=== PATIENT | female | born 1945 | race Caucasian/White ===

== ENCOUNTER 2021-03-17 09:13 | Emergency (ER) | payer OTHER ==
[~2021-03-17] VITALS: Ht 165.1 cm; Wt 65.8 kg
[2021-03-17] MEDS ORDERED: PROTONIX40 MG PO (14:07)
[2021-03-17] MEDS ORDERED: DUI500 PO (14:07)
[2021-03-17] MEDS ORDERED: DICY20TA PO (14:07)
== END 2021-03-17 14:52 | disposition home or self-care (01) ==
LOC: ER 09:13
DX: K80.80 Other cholelithiasis without obstruction (principal); N20.0 Calculus of kidney; R10.11 Right upper quadrant pain; R10.31 Right lower quadrant pain

== ENCOUNTER 2023-10-01 16:02 | Inpatient (IN) | payer OTHER ==
[~2023-10-01] VITALS: Ht 152.4 cm; Wt 45.4 kg
[~2023-10-01 16:02] MED LIST: DICY20TA PO; DUI500 PO; PROTONIX40 MG PO
[2023-10-01] MEDS ORDERED: MEMANTINE HCL10 MG PO (16:15)
[2023-10-01] MEDS ORDERED: PERMETHRIN60 GM TP (16:15)
[2023-10-01] MEDS ORDERED: DONEPEZIL HCL10 MG PO (16:15)
[2023-10-01] MEDS ORDERED: LORAZEPAM1 MG PO (16:15)
[2023-10-01] MEDS ORDERED: QUETIAPINE FUM300 MG PO (16:15)
[2023-10-01] MEDS ORDERED: RESTORIL30 MG PO (16:15)
[2023-10-01] MEDS ORDERED: TRAZODONE HCL150 MG PO (16:15)
--- NOTE | 2023-10-01 16:16 | NUR ---
SE RECIBE PTE FEMENINA DE 78 ANOS HYPOACTIVA DESORIENTADA X3 QUIEN AL MOMENTO FAMILIAR INDICA PTE PRECENTA ABCESO EN GLUTEO IZQ. SE APRECIA ERITEMA EN AREA AFECTADA. PTE SE UBICA EN OBS.
[2023-10-01] MEDS ORDERED: KETOROLAC TROMETHAMINE 30 MG VIAL ONE (18:25)
[2023-10-01] MEDS ORDERED: CLINDAMYCIN PHOSPHATE 150 MG/ML (300mg) ONE (18:26)
[2023-10-01] MEDS ORDERED: KETOROLAC TROMETHAMINE 30 MG VIAL IM ONE (18:30)
[2023-10-01] MEDS ORDERED: CLINDAMYCIN PHOSPHATE 150 MG/ML (600mg) IM ONE (18:30)
--- NOTE | 2023-10-01 18:40 | NUR ---
SE EDUCA FAMILIAR SOBRE EL TX MEDICO Y ESTA REFIERE ENTENDER. SE AMY MUESTRAS DE LABORATORIOS Y SE ENVIAN. SE ADMINITRAN MEDICAMENTOS NICKY ORDEN MEDICA
[2023-10-01 18:43] LABS: HEMATOCRIT 36.3 % (36.0-45.00); HEMOGLOBIN 12.4 g/dL (12.0-15.00); MEAN CELL VOLUME 96.8 fL (80.00-100.00); MEAN CORPUSCULAR HEMOGLOBIN 33.2 pg (27.00-32.0); MEAN CORPUSCULAR HGB CONC 34.3 g/dl (32.0-36.0); PLATELET COUNT 188 K/uL (150-450); RED BLOOD COUNT 3.74 M/uL (4.00-6.00); RED CELL DISTRIBUTION WIDTH 14.2 % (11.5-14.5)
[2023-10-01 19:31] LABS: CALCIUM 9.8 mg/dL (8.5-10.1); CREATININE SERUM 1.36 mg/dL (0.55-1.02); GFR 37.7; POTASSIUM 3.83 mEq/L (3.5-5.1)
[2023-10-01] MEDS ORDERED: CLINDAMYCIN PHOSPHATE 150 MG/ML (300mg) IV SCH (21:51)
[2023-10-01] MEDS ORDERED: FAMOTIDINE/PF 20 MG in 0.9 % SODIUM CHLORIDE 100 ML IV SCH (21:53)
[2023-10-01] MEDS ORDERED: QUETIAPINE FUMARATE 100 MG TABLET PO SCH (21:56)
[2023-10-01] MEDS ORDERED: ONDANSETRON HCL 4 MG in 0.9 % SODIUM CHLORIDE 50 ML IV PRN (22:00)
[2023-10-01] MEDS ORDERED: TEMAZEPAM 15 MG CAPSULE PO PRN (22:00)
[2023-10-01] MEDS ORDERED: ACETAMINOPHEN 500 MG GEL..CAP PO PRN (22:00)
[2023-10-01] MEDS ORDERED: DEXTROSE 5 % AND 0.9 % NACL 1,000 ML IV SCH (22:00)
[2023-10-02] MEDS ORDERED: FAMOTIDINE/PF 20 MG/2 ML VIAL ONE (00:28)
[2023-10-02] MEDS ORDERED: CLINDAMYCIN PHOSPHATE 150 MG/ML (300mg) ONE (00:28)
[2023-10-02 03:40] LABS: ALBUMIN 2.4 gm/dL (3.4-5.0); BILIRUBIN TOTAL 0.57 mg/dL (0.3-1.2); BILIRUBIN,CONJUGATED 0.22 mg/dL (0.0-0.2); BILIRUBIN,UNCONJUGATED 0.35 mg/dL (0.0-0.6); CALCIUM 9.4 mg/dL (8.5-10.1); CREATININE SERUM 1.51 mg/dL (0.55-1.02); GFR 33.41; PHOSPHOROUS 2.9 mg/dL (2.5-4.9); POTASSIUM 3.73 mEq/L (3.5-5.1); TOTAL PROTEIN 7.4 gm/dL (6.4-8.2)
[2023-10-02] MEDS ORDERED: FAMOTIDINE/PF 20 MG in 0.9 % SODIUM CHLORIDE 100 ML IV SCH (09:00)
[2023-10-02] MEDS ORDERED: SODIUM CHLORIDE 0.45 % 1,000 ML IV SCH (13:00)
[2023-10-02] MEDS ORDERED: VANCOMYCIN HCL 5 MG/ML REDILUIDO IV SCH (17:00)
[2023-10-02] MEDS ORDERED: CEFTRIAXONE SODIUM 2,000 MG VIAL IV SCH (21:00)
[2023-10-02] MEDS ORDERED: LORazepam 1 MG TABLET PO SCH (21:00)
[2023-10-03 06:29] LABS: HEMOGLOBIN 10.2 g/dL (12.0-15.00); MEAN CELL VOLUME 96.4 fL (80.00-100.00); MEAN CORPUSCULAR HEMOGLOBIN 32.9 pg (27.00-32.0); MEAN CORPUSCULAR HGB CONC 34.1 g/dl (32.0-36.0); PLATELET COUNT 185 K/uL (150-450); RED BLOOD COUNT 3.11 M/uL (4.00-6.00); RED CELL DISTRIBUTION WIDTH 14.4 % (11.5-14.5)
[2023-10-03 07:18] LABS: ALBUMIN 2.3 gm/dL (3.4-5.0); BILIRUBIN TOTAL 0.49 mg/dL (0.3-1.2); CALCIUM 8.7 mg/dL (8.5-10.1); CREATININE SERUM 0.88 mg/dL (0.55-1.02); GFR 62.31; GLOBULINA 3.8 G/DL (2.4-3.5); MAGNESIUM 2.4 mg/dL (1.8-2.4); PHOSPHOROUS 2.1 mg/dL (2.5-4.9); POTASSIUM 3.71 mEq/L (3.5-5.1); TOTAL PROTEIN 6.1 gm/dL (6.4-8.2)
[2023-10-03 07:55] LABS: C-REACTIVE PROTEIN 11.1 MG/DL (0.00-0.29)
[2023-10-03 08:44] LABS: PH,URINE 5.5 (5.0-8.0); URINE APPEARANCE Cloudy; URINE BILIRRUBIN Negative (NEGATIVE); URINE BLOOD Large; URINE COLOR Yellow; URINE GLUCOSE Negative (NEGATIVE); URINE KETONE Negative (NEGATIVE); URINE LEUKOCYTE Large; URINE NITRATE Negative; URINE PROTEIN 30 (NEGATIVE)
[2023-10-03 08:46] LABS: URINE CAST 11.45 uL (0.0-1.40); URINE EPITHELIAL CELLS 14.6 uL (0.0-38.8); URINE RBC 451.5 uL (0.0-20.8); URINE WBC 784.6 uL (0.0-23.2)
[2023-10-03] MEDS ORDERED: FAMOTIDINE/PF 20 MG in 0.9 % SODIUM CHLORIDE 100 ML IV SCH (09:00)
[2023-10-03 09:05] LABS: URINE MUCUS SCANT
[2023-10-03 09:06] LABS: URINE CRYSTALS FEW /HPF
[2023-10-03] MEDS ORDERED: POTASSIUM PHOS,M-BASIC-D-BASIC 18 MM in 0.9 % SODIUM CHLORIDE 250 ML IV NR (10:00)
[2023-10-03] MEDS ORDERED: DEXTROSE 5 % IN WATER 1,000 ML IV SCH (18:30)
[2023-10-04] MEDS ORDERED: MEROPENEM 500 MG/VIAL VIAL IV SCH (12:00)
[2023-10-04 14:22] LABS: HEMATOCRIT 30.9 % (36.0-45.00); HEMOGLOBIN 10.6 g/dL (12.0-15.00); MEAN CELL VOLUME 94.5 fL (80.00-100.00); MEAN CORPUSCULAR HEMOGLOBIN 32.4 pg (27.00-32.0); MEAN CORPUSCULAR HGB CONC 34.3 g/dl (32.0-36.0); PLATELET COUNT 222 K/uL (150-450); RED BLOOD COUNT 3.27 M/uL (4.00-6.00)
[2023-10-04 14:48] LABS: CALCIUM 8.3 mg/dL (8.5-10.1); CREATININE SERUM 0.62 mg/dL (0.55-1.02); GFR 93.34; POTASSIUM 3.8 mEq/L (3.5-5.1)
[2023-10-04] MEDS ORDERED: FAMOtidine 40 MG TABLET PO SCH (21:00)
[2023-10-05] MEDS ORDERED: SODIUM CHLORIDE 0.45 % 1,000 ML IV SCH (06:30)
[2023-10-05 06:42] LABS: ALBUMIN 2.2 gm/dL (3.4-5.0); CALCIUM 8.6 mg/dL (8.5-10.1); CREATININE SERUM 0.82 mg/dL (0.55-1.02); GFR 67.6; PHOSPHOROUS 2.4 mg/dL (2.5-4.9); POTASSIUM 3.81 mEq/L (3.5-5.1)
[2023-10-05] MEDS ORDERED: ENOXAPARIN SODIUM 30 MG/0.3 ML SYRINGE SUBCUTANEO SCH (09:00)
[2023-10-05 16:32] LABS: URINE APPEARANCE Clear; URINE BILIRRUBIN Negative (NEGATIVE); URINE BLOOD Negative; URINE COLOR Yellow; URINE GLUCOSE Negative (NEGATIVE); URINE KETONE Trace (NEGATIVE); URINE LEUKOCYTE Trace; URINE NITRATE Negative; URINE PROTEIN Negative (NEGATIVE)
[2023-10-05 16:35] LABS: URINE EPITHELIAL CELLS 6.1 uL (0.0-38.8); URINE RBC 9.4 uL (0.0-20.8); URINE WBC 47.2 uL (0.0-23.2)
[2023-10-05 16:37] LABS: URINE CAST 1.22 uL (0.0-1.40)
[2023-10-06] MEDS ORDERED: SEROQUEL300 MG PO (16:30)
[2023-10-06] MEDS ORDERED: LORAZEPAM1 MG PO (16:30)
== END 2023-10-06 17:42 | disposition home or self-care (01) | DRG 603 ==
LOC: ER 16:02 → MEDI 22:15 → SEC-K 22:15 → MEDI 10-02 01:17 → MEDJ 10-04 11:51
PROVIDERS: General Practice; Internal Medicine Infectious Disease; Internal Medicine Nephrology; ADMIT Internal Medicine; ATTEND Internal Medicine
DX: L02.31 Cutaneous abscess of buttock (principal); N39.0 Urinary tract infection, site not specified; N17.9 Acute kidney failure, unspecified; E87.0 Hyperosmolality and hypernatremia; L89.322 Pressure ulcer of left buttock, stage 2; L03.317 Cellulitis of buttock; E86.0 Dehydration; G30.8 Other Alzheimer's disease; F02.80 Dementia in other diseases classified elsewhere, unspecified severity, without behavioral disturbance, psychotic disturbance, mood disturbance, and anxiety; Z74.01 Bed confinement status; B96.20 Unspecified Escherichia coli [E. coli] as the cause of diseases classified elsewhere

== ENCOUNTER 2024-01-27 11:34 | Inpatient (IN) | payer OTHER ==
[~2024-01-27] VITALS: Ht 160 cm; Wt 94.8 kg
[~2024-01-27 11:34] MED LIST changes: +DONEPEZIL HCL10 MG PO; +LORAZEPAM1 MG PO; +MEMANTINE HCL10 MG PO; +PERMETHRIN60 GM TP; +QUETIAPINE FUM300 MG PO; +RESTORIL30 MG PO; +SEROQUEL300 MG PO; +TRAZODONE HCL150 MG PO
[2024-01-27] MEDS ORDERED: 0.9 % SODIUM CHLORIDE 1,000 ML IV ONE (11:45)
--- NOTE | 2024-01-27 11:50 | NUR ---
SE RECIBE PTE ALERTA DESORIENTADA EN AMBULANCIA EN COMPANIA DE PARAMEDICOS Y FAMILIAR.PARAMEDICOS REFIEREN PTE LLEVA VARIOS BOX SIN COMER,CON FALTA DE APPETITO.PTE CON DX DE ALZHEIMER.
[2024-01-27 12:30] LABS: HEMATOCRIT 34.1 % (36.0-45.00); HEMOGLOBIN 11.4 g/dL (12.0-15.00); MEAN CELL VOLUME 98.1 fL (80.00-100.00); MEAN CORPUSCULAR HEMOGLOBIN 32.9 pg (27.00-32.0); MEAN CORPUSCULAR HGB CONC 33.5 g/dl (32.0-36.0); PLATELET COUNT 280 K/uL (150-450); RED BLOOD COUNT 3.48 M/uL (4.00-6.00); RED CELL DISTRIBUTION WIDTH 15.4 % (11.5-14.5)
--- NOTE | 2024-01-27 12:46 | NUR ---
SE ORIENTA A FAMILIAR SOBRE ORDENES MEDICAS. SE COLECTAN MUESTRAS DE LABORATORIO Y SE CANALIZA A PACIENTE BAJO MEDIDAS ASEPTICAS. SE COLOCA IVF'S NICKY ORDEN MEDICA. SE REALIZA EKG Y SE NOTIFICA X-RAY.
[2024-01-27 12:53] LABS: INR 1.3; PARTIAL THROMBOPLASTIN TIME 25.6 SECONDS (22.0-34.0); PROTHROMBIN TIME 13.9 SECONDS (9.0-11.5)
[2024-01-27 12:57] LABS: ALBUMIN 2.9 gm/dL (3.4-5.0); BILIRUBIN TOTAL 0.57 mg/dL (0.3-1.2); CALCIUM 9.1 mg/dL (8.5-10.1); CREATININE SERUM 0.94 mg/dL (0.55-1.02); GFR 57.74; GLOBULINA 3.9 G/DL (2.4-3.5); POTASSIUM 3.53 mEq/L (3.5-5.1); TOTAL PROTEIN 6.8 gm/dL (6.4-8.2)
[2024-01-27] MEDS ORDERED: SODIUM CHLORIDE 0.45 % 1,000 ML IV ONE (14:00)
--- NOTE | 2024-01-27 14:55 | NUR ---
FAMILIAR DE PACIENTE NOTIFICA QUE PACIENTE ESTA TOMANDO AGUA POR TURNER CUENTA. DR MARTINEZ ORDENA NO COLOCAR NGT AL MOMENTO A MENOS QUE PACIENTE PRESENTE DIFICULTAD EN TRAGADO.
--- NOTE | 2024-01-27 15:43 | NUR ---
PTE DEL TURNO ANTERIOR ALERTA Y DESORIENTADA EN CAMA CON BARANDAS ELEVADAS. SE MANTIENE BAJO OBSERVACION POR CAMBIOS SIGNIFICtiVOS
[2024-01-27] MEDS ORDERED: SODIUM CHLORIDE 0.45 % 1,000 ML IV SCH (18:30)
[2024-01-27] MEDS ORDERED: LORazepam 1 MG TABLET PO SCH (21:00)
[2024-01-27] MEDS ORDERED: MEMANTINE HCL 10 MG TABLET PO SCH (21:00)
[2024-01-27] MEDS ORDERED: QUETIAPINE FUMARATE 100 MG TABLET PO SCH (21:00)
[2024-01-27] MEDS ORDERED: TRAZODONE HCL 50 MG TABLET PO SCH (21:00)
[2024-01-28] MEDS ORDERED: PERMETHRIN 60 GM TUBE TOP ONE ×2 (01:00→16:00)
[2024-01-28 02:07] LABS: PH,URINE 8.5 (5.0-8.0); URINE APPEARANCE Clear; URINE BILIRRUBIN Negative (NEGATIVE); URINE BLOOD Negative; URINE COLOR Yellow; URINE GLUCOSE Negative (NEGATIVE); URINE KETONE Negative (NEGATIVE); URINE LEUKOCYTE Negative; URINE NITRATE Negative; URINE PROTEIN 30 (NEGATIVE)
[2024-01-28 02:11] LABS: URINE BACTERIA 406.3 uL (0.0-1933); URINE CAST 1.62 uL (0.0-1.40); URINE EPITHELIAL CELLS 42.4 uL (0.0-38.8); URINE RBC 7.5 uL (0.0-20.8); URINE WBC 51.2 uL (0.0-23.2)
[2024-01-28 04:00] VITALS: BP 115/69; O2SAT 98
[2024-01-28] MEDS ORDERED: PANTOPRAZOLE SODIUM 40 MG/VIAL VIAL IV SCH (09:00)
[2024-01-28 10:52] VITALS: BP 93/57; O2SAT 96
[2024-01-28 16:00] VITALS: BP 133/69; O2SAT 98
[2024-01-28] MEDS ORDERED: DONEPEZIL HCL 10 MG TABLET PO SCH (17:00)
[2024-01-28] MEDS ORDERED: AA 4.25%/CAL/LYTES/DEXT 5% 1,000 ML PERIFERAL SCH (17:00)
[2024-01-28 18:29] LABS: HEMOGLOBIN 10.2 g/dL (12.0-15.00); MEAN CELL VOLUME 97.9 fL (80.00-100.00); MEAN CORPUSCULAR HEMOGLOBIN 33.5 pg (27.00-32.0); MEAN CORPUSCULAR HGB CONC 34.2 g/dl (32.0-36.0); PLATELET COUNT 203 K/uL (150-450); RED BLOOD COUNT 3.06 M/uL (4.00-6.00)
[2024-01-28 18:56] LABS: ALBUMIN 2.6 gm/dL (3.4-5.0); BILIRUBIN TOTAL 0.81 mg/dL (0.3-1.2); CALCIUM 8.2 mg/dL (8.5-10.1); CREATININE SERUM 0.69 mg/dL (0.55-1.02); GFR 82.5; GLOBULINA 3.5 G/DL (2.4-3.5); PHOSPHOROUS 2.5 mg/dL (2.5-4.9); POTASSIUM 3.56 mEq/L (3.5-5.1); TOTAL PROTEIN 6.1 gm/dL (6.4-8.2)
[2024-01-28 18:58] LABS: ALBUMIN 2.6 gm/dL (3.4-5.0); BILIRUBIN TOTAL 0.91 mg/dL (0.3-1.2); CALCIUM 8.3 mg/dL (8.5-10.1); CREATININE SERUM 0.71 mg/dL (0.55-1.02); GFR 79.82; GLOBULINA 3.3 G/DL (2.4-3.5); POTASSIUM 3.58 mEq/L (3.5-5.1); TOTAL PROTEIN 5.9 gm/dL (6.4-8.2)
[2024-01-28] MEDS ORDERED: LORATADINE 10 MG TABLET PO SCH (19:42)
[2024-01-28] MEDS ORDERED: LORazepam 0.5 MG TABLET PO SCH (21:00)
[2024-01-29 00:30] VITALS: BP 137/84; O2SAT 96
[2024-01-29 07:25] LABS: HEMATOCRIT 29.7 % (36.0-45.00); HEMOGLOBIN 10.4 g/dL (12.0-15.00); MEAN CELL VOLUME 96.8 fL (80.00-100.00); MEAN CORPUSCULAR HEMOGLOBIN 33.7 pg (27.00-32.0); MEAN CORPUSCULAR HGB CONC 34.8 g/dl (32.0-36.0); PLATELET COUNT 211 K/uL (150-450); RED BLOOD COUNT 3.07 M/uL (4.00-6.00); RED CELL DISTRIBUTION WIDTH 14.8 % (11.5-14.5)
[2024-01-29] MEDS ORDERED: DEXTROSE 5 % IN WATER 1,000 ML IV SCH (07:30)
[2024-01-29 08:00] VITALS: BP 169/81; O2SAT 99
[2024-01-29 08:04] LABS: ALBUMIN 2.4 gm/dL (3.4-5.0); BILIRUBIN TOTAL 0.83 mg/dL (0.3-1.2); CALCIUM 8.3 mg/dL (8.5-10.1); CREATININE SERUM 0.6 mg/dL (0.55-1.02); GFR 96.94; GLOBULINA 3.4 G/DL (2.4-3.5); POTASSIUM 3.37 mEq/L (3.5-5.1); TOTAL PROTEIN 5.8 gm/dL (6.4-8.2)
[2024-01-29] MEDS ORDERED: POTASSIUM CHLORIDE 20MEQ/100ML H2O PB IV NR (10:45)
[2024-01-29 14:13] VITALS: BP 154/88; O2SAT 97
[2024-01-29 16:00] VITALS: BP 132/63; O2SAT 98
[2024-01-29] MEDS ORDERED: LORazepam 0.5 MG TABLET PO PRN (18:33)
[2024-01-29] MEDS ORDERED: TRAZODONE HCL 50 MG TABLET PO SCH (21:00)
[2024-01-30 00:11] VITALS: BP 125/71; O2SAT 100
[2024-01-30 08:00] VITALS: BP 146/67; O2SAT 60
[2024-01-30] MEDS ORDERED: [UNRECOGNIZED DRUG - OTHER] PO SCH (09:00)
[2024-01-30] MEDS ORDERED: FOLIC AC PO SCH (09:00)
[2024-01-30] MEDS ORDERED: MAG PO SCH (09:00)
[2024-01-30] MEDS ORDERED: ZINC PO SCH (09:00)
[2024-01-30] MEDS ORDERED: IRON PO SCH (09:00)
[2024-01-30 18:17] VITALS: BP 111/60; O2SAT 96
[2024-01-31] VITALS: BP 131/82; O2SAT 98
[2024-01-31 07:54] LABS: HEMATOCRIT 33.3 % (36.0-45.00); HEMOGLOBIN 11.5 g/dL (12.0-15.00); MEAN CELL VOLUME 95.8 fL (80.00-100.00); MEAN CORPUSCULAR HEMOGLOBIN 33.1 pg (27.00-32.0); MEAN CORPUSCULAR HGB CONC 34.6 g/dl (32.0-36.0); PLATELET COUNT 180 K/uL (150-450); RED BLOOD COUNT 3.48 M/uL (4.00-6.00)
[2024-01-31 08:46] LABS: ALBUMIN 2.4 gm/dL (3.4-5.0); BILIRUBIN TOTAL 0.59 mg/dL (0.3-1.2); CALCIUM 8.4 mg/dL (8.5-10.1); CREATININE SERUM 0.59 mg/dL (0.55-1.02); GFR 98.83; GLOBULINA 3.5 G/DL (2.4-3.5); POTASSIUM 3.91 mEq/L (3.5-5.1); TOTAL PROTEIN 5.9 gm/dL (6.4-8.2)
[2024-01-31 08:56] LABS: PHOSPHOROUS 1.9 mg/dL (2.5-4.9)
[2024-01-31 09:51] VITALS: BP 188/71; O2SAT 100
[2024-01-31 10:19] VITALS: BP 155/80
[2024-01-31] MEDS ORDERED: ENALAPRILAT DIHYDRATE 1.25 MG/ML VIAL IV PRN (10:30)
[2024-01-31] MEDS ORDERED: POTASSIUM PHOS,M-BASIC-D-BASIC 3 MM/ML VIAL IV ONE (11:00)
[2024-01-31] MEDS ORDERED: LORATADINE 10 MG TABLET PO NR (13:00)
[2024-01-31 16:00] VITALS: BP 119/64; O2SAT 100
[2024-02-01 00:13] VITALS: BP 121/71; O2SAT 94
[2024-02-01 08:00] VITALS: BP 104/50; O2SAT 98
[2024-02-01] MEDS ORDERED: LORATADINE 10 MG TABLET PO SCH (09:00)
[2024-02-01] MEDS ORDERED: CLONAZEPAM 0.5 MG TABLET PO PRN (10:30)
[2024-02-01] MEDS ORDERED: CLONAZEPAM0.5 MG PO (10:39)
[2024-02-01] MEDS ORDERED: LORATADINE10 MG PO (10:39)
[2024-02-01] MEDS ORDERED: ARICEPT10 MG PO (10:39)
[2024-02-01] MEDS ORDERED: MEMANTINE HCL10 MG PO (10:40)
[2024-02-01] MEDS ORDERED: TRAZODONE HCL50 MG PO (10:40)
[2024-02-01] MEDS ORDERED: VITAMIN B-121000 MC2 SL (10:43)
[2024-02-01] MEDS ORDERED: FERRO-TIME325 MG PO (10:43)
[2024-02-01] MEDS ORDERED: FOLIC ACID1 MG PO (10:44)
[2024-02-01] MEDS ORDERED: DAILY VALUE1 EACH PO (10:44)
== END 2024-02-01 11:51 | disposition home or self-care (01) | DRG 641 ==
LOC: ER 11:34 → SURH 18:29 → SEC-K 18:29 → SURH 01-28 01:23
PROVIDERS: General Practice; ADMIT Internal Medicine; ATTEND Internal Medicine
PROC: 02HV33Z Insertion of Infusion Device into Superior Vena Cava, Percutaneous Approach (ICD-10-PCS; principal; 2024-01-28)
DX: E86.0 Dehydration (principal); E87.0 Hyperosmolality and hypernatremia; R13.19 Other dysphagia; G30.9 Alzheimer's disease, unspecified; F02.80 Dementia in other diseases classified elsewhere, unspecified severity, without behavioral disturbance, psychotic disturbance, mood disturbance, and anxiety; Z74.01 Bed confinement status; B86 Scabies; E87.6 Hypokalemia; L89.151 Pressure ulcer of sacral region, stage 1